=== PATIENT | male | born 1980 | race Hispanic/Latino ===

== ENCOUNTER 2021-04-29 14:21 | Emergency (ER) | payer OTHER ==
[2021-04-29 15:24] LABS: Absolute Lymphocytes (CBC) 2.1 K/uL (0.7-4.9); Basophils % 0.6 % (0-1.3); Hematocrit 40.3 % (39.6-49.0); MPV 8.1 fL (7.6-11.3); RBC Red Blood Cell Count 4.83 M/uL (4.33-5.43)
[2021-04-29 15:27] LABS: Urine Blood 2+ (Negative); Urine Glucose Negative (Negative); Urine Protein Trace (Negative); Urine Specific Gravity >=1.030 (1.005-1.030); Urine pH 5.5 (5.0-7.0)
[2021-04-29 15:41] LABS: ALT/SGPT 24 U/L (12-78); AST/SGOT 17 U/L (15-37); Albumin 3.3 g/dL (3.4-5.0); Alkaline Phosphatase 69 U/L (45-117); BUN Blood Urea Nitrogen 10 mg/dL (7-18); Bicarbonate 24 mmol/L (21-32); Bilirubin Direct 0.2 mg/dL (0-0.2); Bilirubin Total 0.6 mg/dL (0.2-1.0); Glucose Level 88 mg/dL (74-106); Lipase 69 U/L (73-393); Potassium 3.9 mmol/L (3.5-5.1); Protein, Total 7.4 g/dL (6.4-8.2); Sodium Level 141 mmol/L (136-145)
[2021-04-29 16:10] LABS: Urine Bacteria <20 /HPF (NONE SEEN)
[2021-04-29 16:11] LABS: Urine Mucus 1+ /HPF (NONE SEEN)
--- NOTE | 2021-04-29 16:59 | ER ---
Nurse's Notes [facility] Name: Alexander Nieves Age: 40 yrs Sex: Male : 1980 Arrival Date: 04/29/2021 Time: 14:30 Bed 17 Private MD: Diagnosis: Dysuria Presentation: 04/29 14:31 Chief complaint: Patient states: "I am having problems going to the bathroom. I was on jd3 antibiotics for that last month and it does not seem to be working.". Coronavirus screen: At this time, the client does not indicate any symptoms associated with coronavirus-19. Ebola Screen: Patient negative for fever greater than or equal to 101.5 degrees Fahrenheit, and additional compatible Ebola Virus Disease symptoms. Initial Sepsis Screen: Does the patient meet any 2 criteria? No. Patient's initial sepsis screen is negative. Does the patient have a suspected source of infection? No. Patient's initial sepsis screen is negative. Risk Assessment: Do you want to hurt yourself or someone else? Patient reports no desire to harm self or others. Note pt from the [facility]. Onset of symptoms was April 28, 2021. 14:31 Method Of Arrival: Ambulatory jd3 14:31 Acuity: NIDA 3 jd3 Historical: - Allergies: 14:34 No Known Allergies; jd3 - Home Meds: 14:34 terazosin oral oral [Active]; jd3 - PMHx: 14:34 None; jd3 - PSHx: 14:34 None; jd3 - Immunization history:: Adult Immunizations up to date. - Social history:: Smoking status: Patient denies any tobacco usage or history of. Screenin:48 Abuse screen: Denies threats or abuse. Denies injuries from another. Nutritional kg screening: No deficits noted. Tuberculosis screening: No symptoms or risk factors identified. Fall Risk None identified. No fall in past 12 months (0 pts). No secondary diagnosis (0 pts). No IV (0 pts). Ambulatory Aid- None/Bed Rest/Nurse Assist (0 pts). Gait- Normal/Bed Rest/Wheelchair (0 pts) Mental Status- Oriented to own ability (0 pts). Total Suárez Fall Scale indicates No Risk (0-24 pts). Assessment: 14:46 General: Appears in no apparent distress. Behavior is calm, cooperative, appropriate kg for age, quiet. Pain: Complains of pain in left lower quadrant Pain currently is 4 out of 10 on a pain scale. at worst was 10 out of 10 on a pain scale. level that patient reports is acceptable is 2 out of 10 on a pain scale. Quality of pain is described as burning. Neuro: No deficits noted. Cardiovascular: No deficits noted. Respiratory: No deficits noted. GI: Reports nausea. 14:47 : Reports burning with urination, inability to void, pain in left in suprapubic area. kg EENT: No deficits noted. Derm: No deficits noted. Musculoskeletal: No deficits noted. Vital Signs: 14:34 BP 118 / 81; Pulse 84; Resp 17 S; Temp 98.7; Pulse Ox 98% on R/A; Weight 122.02 kg (R); jd3 Height 5 ft. 11 in. (180.34 cm) (R); Pain 4/10; 15:00 BP 124 / 82; Pulse 77; Resp 20; Pulse Ox 98% on R/A; kg 15:30 BP 110 / 63; Pulse 71; Resp 20; Pulse Ox 100% ; kg 16:00 BP 121 / 84; Pulse 77; Resp 20; Pulse Ox 99% ; kg 16:30 BP 115 / 73; Pulse 70; Resp 20; Pulse Ox 99% ; kg 14:34 Body Mass Index 37.52 (122.02 kg, 180.34 cm) jd3 ED Course: 14:30 Patient arrived in ED. ma2 14:33 Triage completed. jd3 14:35 Arm band placed on. jd3 14:42 Chiquita Rush RN is Primary Nurse. kg 14:42 Alessandro Ivan PA is PHCP. [facility] 14:42 Peter Bernal MD is Attending Physician. jmm 14:49 Patient has correct armband on for positive identification. Placed in gown. Bed in low kg position. Call light in reach. Side rails up X2. 15:20 Inserted saline lock: 18 gauge in right antecubital area, using aseptic technique. kg 15:34 Urine Culture Sent. kg 15:34 Urine Microscopic Only Sent. kg 15:34 Procalcitonin Sent. kg 15:34 Lactate Sent. kg 15:34 Blood Culture Adult (2) Sent. kg 15:34 Urine Dipstick-Ancillary Sent. kg 17:28 IV discontinued, intact, bleeding controlled, No redness/swelling at site. Pressure kg dressing applied. 17:28 No provider procedures requiring assistance completed. kg Administered Medications: 17:14 Drug: Rocephin (cefTRIAXone) 1 grams Route: IV; Rate: calculated rate; Site: right kg antecubital; 17:20 Follow up: IV Status: Completed infusion; IV Intake: 10ml kg Intake: 17:20 IV: 10ml; Total: 10ml. kg Outcome: 16:58 Discharge ordered by MD. yeh 17:28 Discharged to home D/C'd back to [facility] with two guards kg 17:28 Condition: good 17:28 Discharge instructions given to patient, Instructed on discharge instructions, follow up and referral plans. Demonstrated understanding of instructions, follow-up care, medications, Prescriptions given X 1. 17:37 Patient left the ED. kg Signatures: Alessandro Ivan PA PA jmm Davies, Jonathon, ALLYSSA RN jd3 Peter Bernal MD MD ma2 Chiquita Rush RN RN kg
--- NOTE | 2021-04-29 16:59 | EDPHYS ---
Physician Documentation [facility] Name: Alexander Nieves Age: 40 yrs Sex: Male : 1980 Arrival Date: 04/29/2021 Time: 14:30 Bed 17 Private MD: ED Physician Peter Bernal HPI: 04/29 14:50 This 40 yrs old Male presents to ER via Ambulatory with complaints of Urinary jmm Retention. 14:50 The patient presents with painful urination. Onset: The symptoms/episode began/occurred jmm gradually, 1 week(s) ago. Modifying factors: The symptoms are alleviated by nothing, the symptoms are aggravated by nothing. Associated signs and symptoms: Pertinent positives: dysuria, fever. This is a 40 year old male with no chronic medical conditions that presents to the ED with complaints of painful urination with fever beginning yesterday. Treated for UTI 5 weeks ago. . Historical: - Allergies: 14:34 No Known Allergies; jd3 - Home Meds: 14:34 terazosin oral oral [Active]; jd3 - PMHx: 14:34 None; jd3 - PSHx: 14:34 None; jd3 - Immunization history:: Adult Immunizations up to date. - Social history:: Smoking status: Patient denies any tobacco usage or history of. ROS: 14:50 Constitutional: Negative for fever, chills, and weight loss, Cardiovascular: Negative jmm for chest pain, palpitations, and edema, Respiratory: Negative for shortness of breath, cough, wheezing, and pleuritic chest pain. 14:50 : Positive for urinary symptoms. 14:50 All other systems are negative. Exam: 14:50 Constitutional: This is a well developed, well nourished patient who is awake, alert, jmm and in no acute distress. Head/Face: atraumatic. Eyes: EOMI, no conjunctival erythema appreciated ENT: Moist Mucus Membranes Neck: Trachea midline, Supple Chest/axilla: Normal chest wall appearance and motion. Cardiovascular: Regular rate and rhythm. No edema appreciated Respiratory: Normal respirations, no respiratory distress appreciated Abdomen/GI: Non distended, soft Back: Normal ROM Skin: General appearance color normal MS/ Extremity: Moves all extremities, no obvious deformities appreciated, no edema noted to the lower extremities Neuro: Awake and alert, normal gait Psych: Behavior is normal, Mood is normal, Patient is cooperative and pleasant Vital Signs: 14:34 BP 118 / 81; Pulse 84; Resp 17 S; Temp 98.7; Pulse Ox 98% on R/A; Weight 122.02 kg (R); jd3 Height 5 ft. 11 in. (180.34 cm) (R); Pain 4/10; 15:00 BP 124 / 82; Pulse 77; Resp 20; Pulse Ox 98% on R/A; kg 15:30 BP 110 / 63; Pulse 71; Resp 20; Pulse Ox 100% ; kg 16:00 BP 121 / 84; Pulse 77; Resp 20; Pulse Ox 99% ; kg 16:30 BP 115 / 73; Pulse 70; Resp 20; Pulse Ox 99% ; kg 14:34 Body Mass Index 37.52 (122.02 kg, 180.34 cm) jd3 MDM: 14:50 Patient medically screened. [facility] 16:55 Data reviewed: vital signs, nurses notes. Counseling: I had a detailed discussion with ruba the patient and/or guardian regarding: the historical points, exam findings, and any diagnostic results supporting the discharge/admit diagnosis, lab results, the need for outpatient follow up, to return to the emergency department if symptoms worsen or persist or if there are any questions or concerns that arise at home. ED course: Patient is alert and non toxic in appearance in the ED. No signs of resp distress. patient advised to follow up with pcp and otherwise given strict return precautions. patient understood and agrees with the plan of care. . 04/29 14:53 Order name: Basic Metabolic Panel; Complete Time: 15:41 [facility] 04/29 14:53 Order name: CBC with Diff; Complete Time: 15:39 [facility] 04/29 14:53 Order name: Hepatic Function; Complete Time: 15:41 [facility] 04/29 14:53 Order name: Lipase; Complete Time: 15:41 [facility] 04/29 14:53 Order name: Urine Microscopic Only; Complete Time: 16:14 [facility] 04/29 14:53 Order name: Urine Culture [facility] 04/29 14:53 Order name: IV Saline Lock; Complete Time: 15:34 [facility] 04/29 14:53 Order name: Labs collected and sent; Complete Time: 15:34 [facility] 04/29 14:53 Order name: Urine Dipstick-Ancillary (obtain specimen); Complete Time: 15:34 [facility] 04/29 14:54 Order name: Procalcitonin; Complete Time: 16:14 [facility] 04/29 14:54 Order name: Lactate; Complete Time: 15:40 [facility] 04/29 14:54 Order name: Blood Culture Adult (2) [facility] 04/29 15:27 Order name: Urine Dipstick-Ancillary EDMS Administered Medications: 17:14 Drug: Rocephin (cefTRIAXone) 1 grams Route: IV; Rate: calculated rate; Site: right kg antecubital; 17:20 Follow up: IV Status: Completed infusion; IV Intake: 10ml kg Disposition: 04/29/21 16:58 Discharged to Home. Impression: Dysuria. - Condition is Stable. - Discharge Instructions: Dysuria. - Prescriptions for Cephalexin 500 mg Oral Capsule - take 1 capsule by ORAL route every 8 hours for 10 days; 30 capsule. - Medication Reconciliation Form, Thank You Letter, Antibiotic Education, Prescription Opioid Use form. - Follow up: Private Physician; When: 2 - 3 days; Reason: Recheck today's complaints, Continuance of care, Re-evaluation by your physician. Signatures: Dispatcher [employer] EDMS Alessandro Ivan PA PA jmm Davies, Jonathon RN RN Chiquita Richard RN RN kg Corrections: (The following items were deleted from the chart) 17:37 16:58 04/29/2021 16:58 Discharged to Home. Impression: Dysuria. Condition is Stable. kg Forms are Medication Reconciliation Form, Thank You Letter, Antibiotic Education, Prescription Opioid Use. Follow up: Private Physician; When: 2 - 3 days; Reason: Recheck today's complaints, Continuance of care, Re-evaluation by your physician. ruba
[2021-04-29] MEDS ORDERED: CEFTRIAXONE/SWI 1gm 1 GM/10 ML SYR ONE (17:30)
[2021-04-29 18:00] VITALS: TEMP 98.7
[2021-04-29 18:05] VITALS: O2SAT 99
[2021-04-29 18:07] VITALS: BP 115/73
== END 2021-04-29 17:37 | disposition home or self-care (01) ==
LOC: ER 14:21
DX: R30.0 Dysuria (principal)
CPT/HCPCS: 36415; 80048; 80076; 81003; 81015; 83605; 83690; 84145; 85025; 87040; 87086; 87088; J0696